=== PATIENT | female | born 1955 | race American Indian/Alaskan Native ===

== ENCOUNTER 2016-10-13 11:11 | Emergency (ER) | payer BC ==
[2016-10-13 11:54] VITALS: BP 154/98
--- NOTE | 2016-10-13 16:12 | Emergency Department Report ---
ED Rash HPI - HPI Chief Complaint: Skin Rash Stated Complaint: INSECT BITE Time Seen by Provider: 10/13/16 15:52 Duration: 4 Days Location: Lower Extremities (left buttock left upper thigh) Suspected Cause: Insect Rash Symptoms: Yes Itching, No Facial Swelling, No Tongue/Oral Swelling, No Breathing Difficulties, No Choking Sensation, No Wheezing/Dyspnea, No Peeling, No Blistering, No Fever, No Lightheaded, No Malaise, No Myalgias Severity: mild Other History: 61-year-old female past medical history hypertension hyperlipidemia diabetes type 2 presents with complaint of itchy bumpy lesions to left buttock and left lower lateral thigh region. Patient states she is concerned she may have been bitten by mosquitoes or ants. Patient denies any fevers chills denies any pain with defecation. Denies any nausea or vomiting. Denies any significant redness of skin on leg thigh or buttock. Denies allergies to any substances or foods. States she has been using topical hydrocortisone with some relief of the itching. Patient also incidentally states that she is out of her blood pressure and diabetes medicines. States she is trying to make a follow-up appointment within the next 2 weeks for primary care. ED Review of Systems ROS: Stated complaint: INSECT BITE Other details as noted in HPI Constitutional: denies: chills, fever Eyes: denies: eye pain, eye discharge, vision change ENT: denies: ear pain, throat pain Respiratory: denies: cough, shortness of breath, wheezing Cardiovascular: denies: chest pain, palpitations Endocrine: no symptoms reported Gastrointestinal: denies: abdominal pain, nausea, diarrhea Genitourinary: denies: urgency, dysuria, discharge Musculoskeletal: denies: back pain, joint swelling, arthralgia Skin: as per HPI. denies: rash, lesions Neurological: denies: headache, weakness, paresthesias Psychiatric: denies: anxiety, depression Hematological/Lymphatic: denies: easy bleeding, easy bruising ED Past Medical Hx - Past Medical History Previous Medical History?: Yes Hx Hypertension: Yes Hx Diabetes: Yes Additional medical history: High cholesterol - Surgical History Past Surgical History?: Yes Additional Surgical History: Hysterectomy - Social History Smoking Status: Never Smoker Substance Use Type: Alcohol, Prescribed - Medications Home Medications: Home Medications Medication Instructions Recorded Confirmed Last Taken Type Amlodipine Bes/Olmesartan Med 1 tab PO DAILY #14 tab 10/13/16 Unknown Rx [Nola 5-20 mg] Mupirocin [Bactroban 2% CREAM] 1 applicatio TP TID #1 cream 10/13/16 Unknown Rx Rosuvastatin (Nf) [Crestor] 10 mg PO QHS #14 tablet 10/13/16 Unknown Rx Saxagliptin HCl [Onglyza] 2.5 mg PO QDAY #14 tablet 10/13/16 Unknown Rx Rash Exam - Exam General: Vital signs noted. No distress. Alert and acting appropriately. HEENT: No Periorbital Edema, No Conjuctival Injection, No Chemosis, No Perioral Edema, No Tongue Edema, No Uvular Edema, No Compromised Airway, No Drooling Lungs: Yes Good Air Exchange (Normal Breath Sounds), No Wheezes, No Ronchi, No Stridor, No Cough, No Labored Respirations, No Retractions, No Use of Accessory Muscles, No Other Abnormal Lung Sounds Heart: Yes Regular, No Murmur Skin: Yes Maculopapular Rash, No Urticarial Rash, No Morbilliform rash, No Bulla (e), No Excoriations, No Weeping, No Tenderness, No Erythema, No Edema, No Encrustations, No Other Other: Positive: Abdomen Normal, Neurologic Normal, Musculoskeletal Normal ED Course Vital Signs 10/13/16 11:49 Temperature 98.6 F Pulse Rate 81 Respiratory 20 Rate Blood Pressure 154/98 O2 Sat by Pulse 98 Oximetry ED Medical Decision Making - Medical Decision Making A/P: Mild left buttock and left thigh folliculitis, possible bug bites 1-patient can continue hydrocortisone cream topical, topical bactroban. There is no evidence of an abscess or cellulitis at any area on the patient's left leg. Tiny clusters of pustules. Not vesicular does not appear as herpes zoster. No erythema no induration and no fluctuance or area of skin is less than 2 x 3 cm diameter 2-patient requesting refills on amlodipine, olemartan, saxagliptin and crestor. I'll give patient a 2 weeks worth of Rx so that she can follow-up with her primary doctor 3-I advised patient that should she develop a large patches of red indurated skin or fluctuant skin on leg to return to the ED. Patient does not have evidence of cellulitis at this time. Critical care attestation.: If time is entered above; I have spent that time in minutes in the direct care of this critically ill patient, excluding procedure time. ED Disposition Clinical Impression: Folliculitis, Medication refill Disposition: TO HOME OR SELFCARE Is pt being admited?: No Does the pt Need Aspirin: No Condition: Stable Instructions: Folliculitis (ED), Insect Bite or Sting (ED) Prescriptions: Rosuvastatin (Nf) [Crestor] 10 mg PO QHS #14 tablet Amlodipine Bes/Olmesartan Med [Nola 5-20 mg] 1 tab PO DAILY #14 tab Mupirocin [Bactroban 2% CREAM] 1 applicatio TP TID #1 cream Saxagliptin HCl [Onglyza] 2.5 mg PO QDAY #14 tablet Referrals: JOSE CRUZ ADAMS MD [Primary Care Provider] - 3-5 Days Time of Disposition: 16:18
== END 2016-10-13 16:29 | disposition home or self-care (01) ==
LOC: ED 11:11
DX: L73.9 Follicular disorder, unspecified (principal); I10 Essential (primary) hypertension; E11.9 Type 2 diabetes mellitus without complications; E78.00 Pure hypercholesterolemia, unspecified
CPT/HCPCS: 82962; 99282